=== PATIENT | female | born 1960 | race Caucasian/White ===

== ENCOUNTER 2024-02-28 03:01 | Outpatient (RCR) | payer MEDICARE, OTHER, SELFPAY ==
[2024-02-28] MEDS: Normal Saline Flush 10 ML SYR IVP ×2 (11:22→14:36)
[2024-02-28 11:31] LABS: Abs Immature Grans 0.01 10^3/uL (0.0-0.06); Absolute Basophil Count 0.07 10^3/uL (0.0-0.2); Absolute Eosinophil Count 0.31 10^3/uL (0.0-0.7); Absolute Lymphocyte Count 2.12 10^3/uL (1.2-3.4); Absolute Monocyte Count 0.43 10^3/uL (0.1-0.8); Absolute Neutrophil Count 2.27 10^3/uL (1.2-6.7); Basophils % 1.3 %; HCT 39.9 % (36.0-46.0); Immature Grans % 0.2 %; Lymphocytes % 40.7 %; MCH 29.1 pg (27.0-33.0); MCHC 32.6 % (32.0-36.0); MCV 89 fL (80-95); MPV 10.9 fL (8.0-11.0); Monocytes % 8.3 %; Neutrophils % 43.5 %; Platelet Count 230 10^3/uL (130-400); RBC 4.47 10^6/uL (3.93-5.22); RDW 13.4 % (11.7-14.6); RDW-SD 43.8 fL; WBC 5.21 10^3/uL (4.4-10.8)
[2024-02-28 11:58] LABS: ALT 17 U/L (14-59); AST 15 U/L (15-37); Albumin 3.3 g/dL (3.4-5.0); Alkaline Phosphatase 103 U/L (46-116); Anion Gap 7.9 mmol/L (3-11); BUN 13 mg/dL (7-18); Bilirubin, Total 0.58 mg/dL (0.2-1.0); CO2 27.1 mmol/L (21.0-32.0); CREATININE 1.2 mg/dL (0.55-1.02); Calcium 9.3 mg/dL (8.5-10.1); Chloride 109 mmol/L (98-107); Estimated GFR 49.92 (mL/min/1.73m2); Glucose 92 mg/dL (74-106); Potassium 3.8 mmol/L (3.5-5.1); Sodium 144 mmol/L (136-145); Total Protein 7.5 g/dL (6.4-8.2)
== END 2024-03-23 23:59 | disposition home or self-care (01) ==
LOC: INF 03:01
PROVIDERS: Visit Provider Internal Medicine Hematology & Oncology
DX: C17.9 Malignant neoplasm of small intestine, unspecified (principal); Z45.2 Encounter for adjustment and management of vascular access device
CPT/HCPCS: 36591; 80053; 96523; 82378; 85025

== ENCOUNTER 2025-01-07 03:41 | Outpatient (CLI) | payer OTHER, SELFPAY ==
--- NOTE | 2025-01-07 | DI.CT_ITS ---
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 TECHNIQUE: Imaging Protocol: Axial computed tomography images with coronal and sagittal reformatted images were created and reviewed CONTRAST MATERIAL: Intravenous: Omnipaque 350 Contrast volume:100 ml Oral: Yes. Oral contrast was also administered for bowel opacification COMPARISON: CT CT ABD/PELVIS W CONTRAST from 02/26/[address] CHEST/ABD/PEL W from 02/28/2024 FINDINGS: CHEST: LUNGS: There are no infiltrates nor pleural effusions.. There are 3 small stable appearing lung nodules. In the lateral basal segment of the left lower lobe there is a stable noncalcified 4 mm nodule which is unchanged from at least February 2023 where it was visible on the uppermost images of an outside abdominal CT scan at that time. There is a fissure related nodule in the mid left lung field which is measures 8 mm and is unchanged from CT scan of 02/28/2024. Scans prior to that time or abdominal only and did not cover this area. In addition, there is a E solitary small unchanged nodule in the right lung right upper lobe which measures 4 mm, unchanged. There are no new lung nodules. No new findings in the trachea and mainstem bronchi. MEDIASTINUM: There is no hilar nor mediastinal adenopathy. Thyroid size is normal. There appears to be a nodule in the right thyroid lobe. CARDIAC: Heart size is normal. There is no pericardial effusion.Caliber of the thoracic aorta is within normal limits. OSSEOUS: No fractures. No significant osseous lesions evident. Distal tip the right-sided Port-A-Cath is in the upper right atrium. ABDOMEN: GI: The administered oral contrast has reached the rectum. There is small amount of perihepatic ascites and there is some free fluid also evident in the pelvis, similar to previous. The amount of abnormal density in the omentum subjacent to the transverse colon is perhaps slightly less than previous. Again noted is evidence of prior bowel resection surgery. The ileocolic anastomosis appears intact. However, there are still multiple cystic densities in both sides the pelvis which not decreased. Indeed, there appears to be mural involvement of the sigmoid in the pelvis again noted. There is no evidence of bowel obstruction nor free air. LIVER: There are no metastatic appearing lesions in the liver. No dilated intrahepatic ducts. GALLBLADDER/BILIARY: No obvious gallbladder pathology. CBD is not dilated. PANCREAS: No evidence of pancreatic mass nor dilatation of the pancreatic duct. SPLEEN: Spleen is not enlarged. There are no new intrasplenic lesions. There is a subcapsular hypodensity in the medial aspect of the spleen measuring 1 cm either cyst or hemangioma, similar to previous. Splenic and portal veins are patent. ADRENALS: There are no significant adrenal masses. KIDNEYS: No calculi nor hydronephrosis. No solid renal masses. Small 1 cm cyst in the lateral cortex of the right kidney is unchanged. ABDOMINAL AORTA: Abdominal aorta is not enlarged. LYMPH NODES: There is no retroperitoneal nor paraaortic adenopathy. ABDOMINAL WALL: No evidence of significant anterior abdominal wall nor inguinal hernia. PELVIS: LYMPH NODES: Multiple cystic cystic hypodensities in both sides the pelvis are again noted and appears stable with perhaps very minimal increased in size. GI: Appendix is surgically absent.In left side of the pelvis there is a focal constriction of the upper sigmoid noted over a distance of 1.7 cm. May just represent peristaltic wave but cannot exclude annular lesion (series 20/image 54) URINARY BLADDER: Bladder is significantly compressed by the overlying cystic lesions in the pelvis. REPRODUCTIVE: Uterus surgically absent. Ovaries are either surgically absent or non able to be differentiated from the multiple cystic structures in the pelvis. OSSEOUS: Posterior fusion hardware in the lower lumbar spine. No fractures. No significant osseous lesions. No evidence of osteomyelitis. IMPRESSION: 1. Compared to the prior CT scan of February 2024 there is no evidence of new metastatic disease in the chest. There are 3 stable small benign-appearing lung nodules as described individually above. There are no new lung nodules nor infiltrates nor pleural effusions nor intrathoracic adenopathy. 2. Relatively stable appearance of the abdomen with evidence of previous partial bowel resection and no evidence of bowel obstruction despite the numerous previously described cystic metastatic lesions in the pelvis and mild omental caking in the omentum subjacent to the transverse colon. There is, however, a small amount of perihepatic ascites on the present study, slightly more so than previous. RADIATION DOSE DELIVERED: 725.83mGy.cm Total DLP DATA REPOSITORY: All CT scans at this facility are submitted to the National Radiology Data Registry (NRDR) Dose Index Registry (DIR) with the [employer] ([employer]). RADIATION OPTIMIZATION: All CT scans at this facility use at least one of these dose optimization techniques: automated exposure control; mA and/or kV adjustment per patient size (includes targeted exams where dose is matched to clinical indication); or iterative reconstruction.
[2025-01-07] MEDS: Barium Sulfate 2% W/V-Creamy Vanilla Smoothie 450 ML BTL PO (08:16)
[2025-01-07] MEDS: Barium Sulfate 2% W/V-Berry Smoothie 450 ML BTL PO (08:16)
[2025-01-07] MEDS: Normal Saline Flush 10 ML SYR IVP (10:16)
[2025-01-07] MEDS: Omnipaque 350 MG/ML 500 ML BTL-Imaging package IJ (10:16)
[2025-01-07] MEDS: Normal Saline - Diluent 50 ML VIAL IJ (10:16)
== END 2025-01-07 04:01 ==
LOC: DI 03:41
PROVIDERS: Visit Provider Internal Medicine Hematology & Oncology
DX: C17.9 Malignant neoplasm of small intestine, unspecified (principal)
CPT/HCPCS: 74177; 71260

== ENCOUNTER 2025-01-07 04:08 | Outpatient (RCR) | payer OTHER, SELFPAY ==
[2025-01-07] MEDS: Normal Saline Flush 10 ML SYR IVP (08:14)
[2025-01-07 08:33] LABS: Abs Immature Grans 0.02 10^3/uL (0.0-0.06); HCT 40.3 % (36.0-46.0); HGB 12.9 g/dL (11.2-15.7); Immature Grans % 0.3 %; MCH 27.5 pg (27.0-33.0); MCHC 32.0 % (32.0-36.0); MCV 86 fL (80-95); MPV 11.3 fL (8.0-11.0); Platelet Count 165 10^3/uL (130-400); RBC 4.69 10^6/uL (3.93-5.22); RDW 13.3 % (11.7-14.6); RDW-SD 41.3 fL; WBC 6.20 10^3/uL (4.4-10.8)
[2025-01-07 08:53] LABS: ALT 24 U/L (14-59); AST 19 U/L (15-37); Albumin 3.3 g/dL (3.4-5.0); Alkaline Phosphatase 114 U/L (46-116); Anion Gap 10.0 mmol/L (3-11); BUN 9 mg/dL (7-18); Bilirubin, Total 0.8 mg/dL (0.2-1.0); CO2 27.0 mmol/L (21.0-32.0); Calcium 9.2 mg/dL (8.5-10.1); Chloride 104 mmol/L (98-107); Glucose 98 mg/dL (74-106); Potassium 3.1 mmol/L (3.5-5.1); Sodium 141 mmol/L (136-145); Total Protein 7.6 g/dL (6.4-8.2)
[2025-01-07 22:26] LABS: CEA 9.9 ng/mL (See Note)
== END 2025-01-21 23:59 | disposition home or self-care (01) ==
LOC: INF 04:08
PROVIDERS: Nurse Practitioner Family; Visit Provider Internal Medicine Gastroenterology
DX: C17.9 Malignant neoplasm of small intestine, unspecified (principal)
CPT/HCPCS: 80053; 82378; 85025